=== PATIENT | male | born 1980 | race Caucasian/White ===

== ENCOUNTER 2024-08-26 21:50 | Inpatient (IN) | payer MEDICAID, OTHER ==
[~2024-08-26] VITALS: Ht 185.4 cm; Wt 86.2 kg
[2024-08-26] MEDS ORDERED: MORPHINE SULFATE 2 MG/ML INJ (NOT FOR IM USE) IV NR (22:15)
[2024-08-27 04:17] LABS: BASOPHILS % 0.7 % (0.0-2.0); EOSINOPHILS % 2.3 % (0.0-5.0); HEMATOCRIT. 30.3 % (42.0-52.0); HEMOGLOBIN. 10.1 g/dL (14.0-18.0); LYMPHOCYTES % 27.2 % (20.0-50.0); MEAN CORPUSCULAR HEMOGLOBIN 29.9 pg (28.0-32.0); MEAN CORPUSCULAR HGB CONC 33.3 g/dL (31.0-37.0); MEAN CORPUSCULAR VOLUME 89.8 fL (80.0-94.0); MEAN PLATELET VOLUME 7.8 fl (7.4-10.4); MONOCYTES % 8.2 % (2.0-8.0); NEUTROPHILS % 61.6 % (40.0-76.0); PLATELET 129 x1000/uL (130-400); RED BLOOD CELL COUNT 3.38 mill/uL (4.7-6.1); RED CELL DISTRIBUTION WIDTH 16.4 % (11.6-14.6); WHITE BLOOD COUNT 8.3 x1000/uL (4.5-11.0)
[2024-08-27 04:24] LABS: CHLORIDE 105 mEq/L (98-107)
[2024-08-27 04:25] LABS: CARBON DIOXIDE 22 mEq/L (21-32); POTASSIUM 3.1 mEq/L (3.5-5.1); SODIUM 136 mEq/L (136-145)
[2024-08-27 04:26] LABS: CALCIUM 7.8 mg/dL (8.7-10.4)
[2024-08-27 04:30] LABS: CREATININE 0.8 mg/dL (0.6-1.3)
[2024-08-27 04:31] LABS: ETHANOL BLOOD 275 mg/dL (<10); GLUCOSE 116 mg/dL (70-105)
[2024-08-27 04:32] LABS: ALANINE AMINOTRANSFERASE 25 IU/L (10-49); ALBUMIN 3.2 g/dL (3.2-4.8); ASPARTATE AMINOTRANSFERASE 61 IU/L (<34)
[2024-08-27 04:33] LABS: BILIRUBIN DIRECT 1.5 mg/dL (<=3.0); BILIRUBIN TOTAL 2.8 mg/dL (0.1-1.0); PROTEIN TOTAL 6.9 g/dL (6.0-8.3)
[2024-08-27] MEDS: MORPHINE SULFATE 2 MG/ML INJ (NOT FOR IM USE) IV NR (04:34)
[2024-08-27] MEDS: CEFTRIAXONE 1GM/50ML 50 ML IV NR (04:34)
[2024-08-27] MEDS: ONDANSETRON HCL 4MG/2ML INJ IV NR ×2 (04:34→04:35)
[2024-08-27 04:37] LABS: UREA NITROGEN BLOOD < 5 mg/dL (9-23)
[2024-08-27 04:38] LABS: INR 1.2; PARTIAL THROMBOPLASTIN TIME 26.5 sec (23.4-31.0); PROTHROMBIN TIME 13.4 sec (9.6-11.0)
[2024-08-27] MEDS: DOXYCYCLINE 100MG/100ML 100 ML IV NR (10:42)
[2024-08-27 11:37] LABS: CLARITY URINE CLEAR (CLEAR); COLOR URINE YELLOW (YELLOW); GLUCOSE URINE NEGATIVE (NEGATIVE); KETONES URINE NEGATIVE (NEGATIVE); LEUKOCYTE ESTERASE URINE NEGATIVE (NEGATIVE); NITRITE URINE NEGATIVE (NEGATIVE); OCCULT BLOOD URINE NEGATIVE (NEGATIVE); PROTEIN URINE NEGATIVE (NEGATIVE); SPECIFIC GRAVITY URINE 1.009 (1.005-1.030)
[2024-08-27 11:51] LABS: *AMPHETAMINES SCREEN URINE NEGATIVE (NEGATIVE); *BARBITURATES SCREEN URINE NEGATIVE (NEGATIVE); *BENZODIAZEPINES SCREEN URINE NEGATIVE (NEGATIVE); *COCAINE SCREEN URINE NEGATIVE (NEGATIVE)
[2024-08-27 11:52] LABS: CANNABINOID URINE SCREEN NEGATIVE (NEGATIVE); ECSTASY MDMA SCREEN URINE NEGATIVE (NEGATIVE); METHADONE URINE SCREEN NEGATIVE (NEGATIVE); OPIATES URINE SCREEN PRESUMPTIVE POSITIVE (NEGATIVE); PHENCYCLIDINE URINE SCREEN NEGATIVE (NEGATIVE)
[2024-08-27] MEDS ORDERED: CLONIDINE 0.1MG TABLET PO PRN (13:00)
[2024-08-27] MEDS ORDERED: ONDANSETRON HCL 4MG/2ML INJ IV PRN (13:00)
[2024-08-27] MEDS ORDERED: DOCUSATE SODIUM 100MG CAPSULE PO PRN (13:00)
[2024-08-27] MEDS ORDERED: IPRATROPIUM/ALBUTEROL 0.5-3(2.5)MG/3ML NEB HHN PRN (13:00)
[2024-08-27] MEDS: FUROSEMIDE 40MG/4ML VIAL IVP NR (16:46)
[2024-08-27] MEDS: CARVEDILOL 3.125 MG TABLET PO SCH (21:00)
[2024-08-28 00:17] VITALS: BP 125/76; PULSE 87; RESP 18; TEMP 36.5292
[2024-08-28] MEDS: ACETAMINOPHEN 325MG TABLET PO PRN (00:56)
[2024-08-28 04:00] VITALS: BP 111/54; PULSE 75; RESP 20; TEMP 37.00296; O2SAT 98
[2024-08-28 08:00] VITALS: BP 103/58; PULSE 93; RESP 18; TEMP 36.6696; O2SAT 98
[2024-08-28] MEDS: MULTIVITAMINS,THER W-MINERALS TABLET PO SCH (08:29)
[2024-08-28] MEDS: THIAMINE HCL 100MG TABLET PO SCH (08:29)
[2024-08-28] MEDS: FOLIC ACID 1MG TABLET PO SCH (08:30)
[2024-08-28] MEDS: FUROSEMIDE 20MG/2ML VIAL IVP SCH (08:30)
[2024-08-28] MEDS: PANTOPRAZOLE SODIUM 40 MG/VIAL IV SCH (08:30)
[2024-08-28] MEDS: SPIRONOLACTONE 50MG TABLET PO SCH (08:34)
[2024-08-28 08:47] LABS: CARBON DIOXIDE 24 mEq/L (21-32); CHLORIDE 103 mEq/L (98-107); POTASSIUM 3.9 mEq/L (3.5-5.1); SODIUM 134 mEq/L (136-145)
[2024-08-28 08:48] LABS: CALCIUM 7.9 mg/dL (8.7-10.4)
[2024-08-28 08:51] LABS: AMMONIA 57 uMol/L (<32)
[2024-08-28 08:52] LABS: CREATININE 0.8 mg/dL (0.6-1.3); GLUCOSE 124 mg/dL (70-105); IRON 92 ug/dL (65-175)
[2024-08-28 08:53] LABS: UREA NITROGEN BLOOD 7 mg/dL (9-23)
[2024-08-28 08:55] LABS: BILIRUBIN TOTAL 3.6 mg/dL (0.1-1.0); GAMMA GLUTAMYL TRANSPEPTIDASE 81 IU/L (<73); TOTAL IRON BINDING CAPACITY 332 ug/dl (250-425)
[2024-08-28 09:22] LABS: FOLIC ACID (FOLATE) SERUM 10.63 ng/mL (>5.38)
[2024-08-28] MEDS: HYDROXYZINE 25MG TABLET PO PRN (09:23)
[2024-08-28 09:25] LABS: FERRITIN 11 ng/mL (22-322)
[2024-08-28 09:27] LABS: VITAMIN B12 SERUM 1302 pg/mL (211-911)
[2024-08-28] MEDS: SODIUM BICARBONATE 4% 2.4MEQ/5ML VIAL IV ONE (09:32)
[2024-08-28] MEDS: LIDOCAINE HCL 1% 10 MG/ML 10ML VIAL ONE (09:32)
[2024-08-28 09:35] LABS: HEPATITIS B SURFACE ANTIGEN NEGATIVE (Negative)
[2024-08-28 09:56] LABS: HEPATITIS A AB IGM NEGATIVE (Negative); HEPATITIS B CORE AB IGM NEGATIVE (Negative)
[2024-08-28 09:57] LABS: HEPATITIS C AB NON REACTIVE (Neg) (Negative)
[2024-08-28 10:35] LABS: BASOPHILS % 0.7 % (0.0-2.0); EOSINOPHILS % 2.1 % (0.0-5.0); HEMOGLOBIN. 8.8 g/dL (14.0-18.0); LYMPHOCYTES % 33.9 % (20.0-50.0); MEAN CORPUSCULAR HEMOGLOBIN 30.1 pg (28.0-32.0); MEAN CORPUSCULAR HGB CONC 33.5 g/dL (31.0-37.0); MEAN CORPUSCULAR VOLUME 89.9 fL (80.0-94.0); MEAN PLATELET VOLUME 8.5 fl (7.4-10.4); MONOCYTES % 8.5 % (2.0-8.0); NEUTROPHILS % 54.8 % (40.0-76.0); PLATELET 79 x1000/uL (130-400); RED BLOOD CELL COUNT 2.92 mill/uL (4.7-6.1); RED CELL DISTRIBUTION WIDTH 16.1 % (11.6-14.6); WHITE BLOOD COUNT 4.3 x1000/uL (4.5-11.0)
[2024-08-28 10:57] LABS: HEMATOCRIT. 26.3 % (42.0-52.0)
[2024-08-28 12:00] VITALS: BP 104/59; PULSE 98; RESP 18; TEMP 36.6696; O2SAT 96
[2024-08-28 14:05] LABS: BODY FLUID WBC 55 /cu mm (0-200)
[2024-08-28 14:06] LABS: BODY FLUID RBC 37 /cu mm (0-2000)
[2024-08-28 14:15] LABS: BODY FLUID MONOCYTES 58 %
[2024-08-28 16:00] VITALS: BP 110/55; PULSE 88; RESP 18; TEMP 36.22512; O2SAT 97
[2024-08-28 20:00] VITALS: BP 127/60; PULSE 70; RESP 19; TEMP 36.72516; O2SAT 96
[2024-08-28] MEDS: CHLORDIAZEPOXIDE 25MG CAPSULE PO SCH (22:52)
[2024-08-29] VITALS: BP 130/80; PULSE 79; RESP 19; TEMP 36.61404; O2SAT 98
[2024-08-29 04:00] VITALS: BP 100/60; PULSE 80; RESP 18; TEMP 36.61404; O2SAT 98
[2024-08-29] MEDS: KETOROLAC 15MG/ML VIAL IV NR (07:06)
[2024-08-29 08:00] VITALS: BP 98/54; PULSE 60; RESP 18; TEMP 36.61404; O2SAT 97
[2024-08-29] MEDS: ACETAMINOPHEN 325MG TABLET PO PRN (10:34)
[2024-08-29 10:43] LABS: BASOPHILS % 0.9 % (0.0-2.0); EOSINOPHILS % 2.9 % (0.0-5.0); HEMATOCRIT. 26.2 % (42.0-52.0); HEMOGLOBIN. 8.8 g/dL (14.0-18.0); MEAN CORPUSCULAR HEMOGLOBIN 29.9 pg (28.0-32.0); MEAN CORPUSCULAR HGB CONC 33.4 g/dL (31.0-37.0); MEAN CORPUSCULAR VOLUME 89.3 fL (80.0-94.0); MEAN PLATELET VOLUME 8.3 fl (7.4-10.4); MONOCYTES % 11.6 % (2.0-8.0); NEUTROPHILS % 40.6 % (40.0-76.0); PLATELET 68 x1000/uL (130-400); RED BLOOD CELL COUNT 2.94 mill/uL (4.7-6.1); RED CELL DISTRIBUTION WIDTH 16.5 % (11.6-14.6); WHITE BLOOD COUNT 3.8 x1000/uL (4.5-11.0)
[2024-08-29 11:09] LABS: CHLORIDE 101 mEq/L (98-107); POTASSIUM 3.7 mEq/L (3.5-5.1); SODIUM 133 mEq/L (136-145)
[2024-08-29 11:10] LABS: CALCIUM 7.8 mg/dL (8.7-10.4); CARBON DIOXIDE 29 mEq/L (21-32)
[2024-08-29 11:11] LABS: INR 1.4; PROTHROMBIN TIME 15.5 sec (9.6-11.0)
[2024-08-29 11:15] LABS: GLUCOSE 82 mg/dL (70-105); UREA NITROGEN BLOOD 11 mg/dL (9-23)
[2024-08-29 11:17] LABS: BILIRUBIN TOTAL 3.5 mg/dL (0.1-1.0); PHOSPHORUS 3.9 mg/dL (2.5-4.9)
[2024-08-29 12:00] VITALS: BP 105/55; PULSE 62; RESP 18; TEMP 36.55848; O2SAT 97
[2024-08-29] MEDS: ALBUMIN HUMAN 12.5G/250ML (5%) IV NR (14:22)
[2024-08-29] MEDS: PHYTONADIONE 10MG/ML INJ SUBCUT SCH (14:32)
[2024-08-29 16:00] VITALS: BP 99/63; PULSE 70; RESP 18; TEMP 36.78072; O2SAT 97
[2024-08-29] MEDS ORDERED: PROPOFOL 200MG/20ML VIAL IV ONE ×2 (16:10→16:31)
[2024-08-29] MEDS ORDERED: LIDOCAINE HCL 1% 10 MG/ML 10ML VIAL ONE (16:10)
[2024-08-29] MEDS ORDERED: MIDAZOLAM HCL 2 MG/2 ML VIAL ONE (16:10)
[2024-08-29] MEDS ORDERED: FENTANYL CITRATE/PF 50MCG/ML 2ML VIAL ONE (16:20)
[2024-08-29 20:00] VITALS: BP 110/62; PULSE 63; RESP 17; TEMP 36.72516; O2SAT 99
[2024-08-29 22:24] LABS: AMMONIA 26 uMol/L (<32)
[2024-08-30] VITALS: BP 94/66; PULSE 73; RESP 17; TEMP 36.55848; O2SAT 99
[2024-08-30 04:00] VITALS: BP 106/58; PULSE 89; RESP 17; TEMP 36.44736; O2SAT 99
[2024-08-30 08:00] VITALS: BP 104/60; PULSE 88; RESP 20; TEMP 36.6696; O2SAT 96
[2024-08-30 12:00] VITALS: BP 116/65; PULSE 93; RESP 18; TEMP 37.16964; O2SAT 99
[2024-08-30 12:13] LABS: BASOPHILS % 0.9 % (0.0-2.0); EOSINOPHILS % 1.8 % (0.0-5.0); HEMATOCRIT. 28.2 % (42.0-52.0); HEMOGLOBIN. 9.2 g/dL (14.0-18.0); LYMPHOCYTES % 13.4 % (20.0-50.0); MEAN CORPUSCULAR HEMOGLOBIN 29.3 pg (28.0-32.0); MEAN CORPUSCULAR HGB CONC 32.7 g/dL (31.0-37.0); MEAN CORPUSCULAR VOLUME 89.4 fL (80.0-94.0); MEAN PLATELET VOLUME 8.8 fl (7.4-10.4); MONOCYTES % 9.9 % (2.0-8.0); PLATELET 99 x1000/uL (130-400); RED BLOOD CELL COUNT 3.15 mill/uL (4.7-6.1); RED CELL DISTRIBUTION WIDTH 16.8 % (11.6-14.6); WHITE BLOOD COUNT 6.5 x1000/uL (4.5-11.0)
[2024-08-30 13:08] LABS: CALCIUM 7.9 mg/dL (8.7-10.4); CARBON DIOXIDE 23 mEq/L (21-32)
[2024-08-30 13:12] LABS: CREATININE 0.9 mg/dL (0.6-1.3)
[2024-08-30 13:13] LABS: GLUCOSE 87 mg/dL (70-105)
[2024-08-30 13:15] LABS: UREA NITROGEN BLOOD 14 mg/dL (9-23)
[2024-08-30 13:18] LABS: BILIRUBIN TOTAL 2.3 mg/dL (0.1-1.0)
[2024-08-30 13:51] LABS: CHLORIDE 98 mEq/L (98-107); POTASSIUM 3.8 mEq/L (3.5-5.1); SODIUM 131 mEq/L (136-145)
[2024-08-30 16:00] VITALS: BP 101/47; PULSE 82; RESP 18; TEMP 36.50292; O2SAT 98
[2024-08-30 17:41] LABS: CHLORIDE 100 mEq/L (98-107); POTASSIUM 3.9 mEq/L (3.5-5.1); SODIUM 131 mEq/L (136-145)
[2024-08-30 17:42] LABS: CARBON DIOXIDE 26 mEq/L (21-32)
[2024-08-30 17:47] LABS: CREATININE 0.9 mg/dL (0.6-1.3); GLUCOSE 104 mg/dL (70-105); UREA NITROGEN BLOOD 12 mg/dL (9-23)
[2024-08-30 17:50] LABS: PHOSPHORUS 3.8 mg/dL (2.5-4.9)
[2024-08-30 20:00] VITALS: BP 110/58; PULSE 80; RESP 18; TEMP 37.00296; O2SAT 96
[2024-08-31] VITALS: BP 100/58; PULSE 81; RESP 18; TEMP 36.6696; O2SAT 99
[2024-08-31 04:00] VITALS: BP 106/58; PULSE 75; RESP 18; TEMP 36.3918; O2SAT 97
[2024-08-31] MEDS: OCTREOTIDE 1,000 MCG in SODIUM CHLORIDE 0.9% 98 ML IV SCH (06:00)
[2024-08-31 08:00] VITALS: BP 99/55; PULSE 82; RESP 18; TEMP 37.61412; O2SAT 97
[2024-08-31 12:00] VITALS: BP 97/64; PULSE 79; RESP 20; TEMP 37.72524; O2SAT 93
[2024-08-31 16:00] VITALS: BP 97/63; PULSE 82; RESP 20; TEMP 38.892; O2SAT 94
[2024-08-31] MEDS ORDERED: MULT-230 MT (16:44)
[2024-08-31] MEDS ORDERED: ALD50 PO (16:44)
[2024-08-31] MEDS ORDERED: CHLO25CA10 MT (16:44)
[2024-08-31] MEDS ORDERED: COR3 PO (16:44)
[2024-08-31] MEDS ORDERED: PANT40TA51 MT (16:44)
[2024-08-31] MEDS ORDERED: FOLI-43 PO (16:44)
[2024-08-31] MEDS ORDERED: FURO20TA4 MT (16:44)
[2024-08-31] MEDS ORDERED: THIA100T72 PO (16:44)
[2024-08-31 20:00] VITALS: BP 100/60; PULSE 80; RESP 18; TEMP 36.44736; O2SAT 96
[2024-08-31 23:58] LABS: HEMATOCRIT. 27.4 % (42.0-52.0); HEMOGLOBIN. 9.2 g/dL (14.0-18.0); MEAN CORPUSCULAR HEMOGLOBIN 29.8 pg (28.0-32.0); MEAN CORPUSCULAR HGB CONC 33.7 g/dL (31.0-37.0); MEAN CORPUSCULAR VOLUME 88.5 fL (80.0-94.0); MEAN PLATELET VOLUME 8.7 fl (7.4-10.4); PLATELET 81 x1000/uL (130-400); RED BLOOD CELL COUNT 3.09 mill/uL (4.7-6.1); RED CELL DISTRIBUTION WIDTH 16.9 % (11.6-14.6); WHITE BLOOD COUNT 2.7 x1000/uL (4.5-11.0)
[2024-09-01] VITALS: BP 92/60; PULSE 74; RESP 20; TEMP 36.22512; O2SAT 100
[2024-09-01 00:30] LABS: DIFFERENTIAL COMMENT 1
[2024-09-01 04:00] VITALS: BP 92/53; PULSE 76; RESP 18; TEMP 36.50292; O2SAT 97
[2024-09-01 08:00] VITALS: BP 92/53; PULSE 75; RESP 18; TEMP 36.9474; O2SAT 98
[2024-09-01 11:00] VITALS: BP 113/77; PULSE 84; TEMP 98.2; O2SAT 97
[2024-09-01 12:00] VITALS: BP 113/77; PULSE 84; RESP 18; TEMP 36.78072; O2SAT 97
[2024-09-01 18:02] LABS: ANISOCYTOSIS 1+; PLATELET ESTIMATE DECREASED
== END 2024-09-01 14:04 | disposition home or self-care (01) | DRG 280 ==
LOC: ER 21:50 → 8WST 08-27 01:55
PROVIDERS: ADMIT Internal Medicine; ATTEND Internal Medicine
PROC: 0W9G3ZZ Drainage of Peritoneal Cavity, Percutaneous Approach (ICD-10-PCS; principal; 2024-08-28)
PROC: 06L38CZ Occlusion of Esophageal Vein with Extraluminal Device, Via Natural or Artificial Opening Endoscopic (ICD-10-PCS; 2024-08-29)
DX: K70.31 Alcoholic cirrhosis of liver with ascites (principal); I85.10 Secondary esophageal varices without bleeding; E83.51 Hypocalcemia; K76.6 Portal hypertension; N45.1 Epididymitis; D64.9 Anemia, unspecified; E87.6 Hypokalemia; F10.229 Alcohol dependence with intoxication, unspecified; F17.200 Nicotine dependence, unspecified, uncomplicated; J45.909 Unspecified asthma, uncomplicated; F90.9 Attention-deficit hyperactivity disorder, unspecified type; F43.10 Post-traumatic stress disorder, unspecified; K31.89 Other diseases of stomach and duodenum; K44.9 Diaphragmatic hernia without obstruction or gangrene; Y90.8 Blood alcohol level of 240 mg/100 ml or more
CPT/HCPCS: 36415; 49083; 74176; 76700; 76870; 80048; 80076; 80305; 80320; 81003; 82040; 82105; 82140; 82247; 82607; 82728; 82746; 82977; 83036; 83540; 83550; 83615; 83735; 84100; 85025; 85044; 86705; 86709; 87340; 93005; 93976; 96365; 96366; 96367; 96375; 99285; A4606; J0696; J1885; J1940; J2003; J2250; J2270; J2354; J2405; J2470; J2704; J3010; J3430; J3490; J7050; P9041; G0480

== ENCOUNTER 2024-10-25 15:05 | Emergency (ER) | payer MEDICAID ==
[~2024-10-25] VITALS: Ht 185.4 cm; Wt 77.3 kg
[~2024-10-25 15:05] MED LIST: ALD50 PO; CHLO25CA10 MT; COR3 PO; FOLI-43 PO; FURO20TA4 MT; MULT-230 MT; PANT40TA51 MT; SPIR50TA5 MT; THIA100T72 PO
[2024-10-25 15:12] VITALS: O2SAT 99
[2024-10-25 15:30] VITALS: TEMP 36.9
[2024-10-25] MEDS: TETANUS, DIPHTHERIA, PERTUSSIS VAC/PF 0.5ML (>10YR OLD) IM ONE (15:36)
[2024-10-25 16:12] LABS: BASOPHILS % 0.6 % (0.0-2.0); EOSINOPHILS % 0.2 % (0.0-5.0); HEMATOCRIT. 23.5 % (42.0-52.0); HEMOGLOBIN. 7.5 g/dL (14.0-18.0); LYMPHOCYTES % 17.8 % (20.0-50.0); MEAN CORPUSCULAR HEMOGLOBIN 26.9 pg (28.0-32.0); MEAN CORPUSCULAR HGB CONC 31.7 g/dL (31.0-37.0); MEAN CORPUSCULAR VOLUME 84.8 fL (80.0-94.0); MEAN PLATELET VOLUME 8.4 fl (7.4-10.4); NEUTROPHILS % 74.4 % (40.0-76.0); PLATELET 73 x1000/uL (130-400); RED BLOOD CELL COUNT 2.77 mill/uL (4.7-6.1); RED CELL DISTRIBUTION WIDTH 19.5 % (11.6-14.6); WHITE BLOOD COUNT 4.4 x1000/uL (4.5-11.0)
[2024-10-25 16:25] LABS: CHLORIDE 102 mEq/L (98-107); POTASSIUM 3.5 mEq/L (3.5-5.1); SODIUM 137 mEq/L (136-145)
[2024-10-25 16:26] LABS: CALCIUM 8.2 mg/dL (8.7-10.4); CARBON DIOXIDE 24 mEq/L (21-32)
[2024-10-25 16:31] LABS: CREATININE 0.8 mg/dL (0.6-1.3); ETHANOL BLOOD 111 mg/dL (<10); GLUCOSE 110 mg/dL (70-105); UREA NITROGEN BLOOD 7 mg/dL (9-23)
[2024-10-25 16:32] LABS: TROPONIN I HIGH SENSITIVITY 6 ng/L (3.0-53)
[2024-10-25] MEDS: LIDOCAINE HCL/EPINEPHRINE 1%-EPI 1:100,000 20ML VIAL INFIL ONE (17:22)
[2024-10-25] MEDS: BACITRACIN ZINC OINT UDPKT TOP ONE (17:22)
[2024-10-25 18:17] LABS: TROPONIN I HIGH SENSITIVITY 5 ng/L (3.0-53)
[2024-10-25 22:23] LABS: CLARITY URINE CLEAR (CLEAR); COLOR URINE YELLOW (YELLOW); GLUCOSE URINE NEGATIVE (NEGATIVE); KETONES URINE NEGATIVE (NEGATIVE); LEUKOCYTE ESTERASE URINE NEGATIVE (NEGATIVE); NITRITE URINE NEGATIVE (NEGATIVE); OCCULT BLOOD URINE NEGATIVE (NEGATIVE); PROTEIN URINE NEGATIVE (NEGATIVE); SPECIFIC GRAVITY URINE 1.005 (1.005-1.030); UROBILINOGEN URINE 0.2 E.U./dL (0.2-1.0)
[2024-10-25 22:40] LABS: *AMPHETAMINES SCREEN URINE NEGATIVE (NEGATIVE); *BARBITURATES SCREEN URINE NEGATIVE (NEGATIVE); *BENZODIAZEPINES SCREEN URINE NEGATIVE (NEGATIVE); *COCAINE SCREEN URINE NEGATIVE (NEGATIVE); CANNABINOID URINE SCREEN NEGATIVE (NEGATIVE); ECSTASY MDMA SCREEN URINE NEGATIVE (NEGATIVE); METHADONE URINE SCREEN NEGATIVE (NEGATIVE); OPIATES URINE SCREEN NEGATIVE (NEGATIVE); PHENCYCLIDINE URINE SCREEN NEGATIVE (NEGATIVE)
[2024-10-25 23:21] VITALS: BP 109/57; PULSE 81; RESP 16; O2SAT 97
== END 2024-10-26 00:41 | disposition home or self-care (01) ==
LOC: ER 15:05
DX: S01.01XA Laceration without foreign body of scalp, initial encounter (principal); S01.81XA Laceration without foreign body of other part of head, initial encounter; K74.60 Unspecified cirrhosis of liver; J45.909 Unspecified asthma, uncomplicated; Z79.899 Other long term (current) drug therapy; W10.9XXA Fall (on) (from) unspecified stairs and steps, initial encounter; Y93.89 Activity, other specified; Y92.89 Other specified places as the place of occurrence of the external cause; Y99.8 Other external cause status
CPT/HCPCS: 80305; 80048; 81003; 80320; 85025; 84484; 36415; 73502; 71045; 70450; 72125; 93005; 12002; 12013; 99285; J2004; Z7610 ×2; G0480

== ENCOUNTER 2024-12-07 20:06 | Emergency (ER) | payer MEDICAID ==
[~2024-12-07] VITALS: Ht 172.7 cm; Wt 76.0 kg
[2024-12-07 20:13] VITALS: BP 118/67; PULSE 78; RESP 16; TEMP 36.7; O2SAT 99
[2024-12-08] MEDS: LIDOCAINE HCL 1% 20ML VIAL INFIL ONE (01:16)
== END 2024-12-08 02:46 | disposition home or self-care (01) ==
LOC: ER 20:06
DX: R18.8 Other ascites (principal); K76.9 Liver disease, unspecified; J45.909 Unspecified asthma, uncomplicated; Z79.899 Other long term (current) drug therapy
CPT/HCPCS: 49083; 99285; Z7610; J3490; 99284